=== PATIENT | male | born 1960 | race Caucasian/White ===

== ENCOUNTER 2022-12-26 12:12 | Emergency (ER) | payer OTHER ==
[~2022-12-26] VITALS: Ht 172.7 cm; Wt 84.4 kg
--- NOTE | 2022-12-26 12:25 | NUR ---
PATIENT CAME WITH COMPLAINTS OF LEFT FOOT PAIN,ITCHNESS AND REDNESS.ALERT AND ORIENTED.PATIENT CONNECTED TO CUSTOMS APPRAISER AND PULSE OXYMETER.BREATHING ON ROOM AIR WITH OUT ANY DISTRESS.ALL SAFTEY PRECAUTIONS AT BED SIDE.AWAITING MD FOR EVAL.
--- NOTE | 2022-12-26 12:26 | NUR ---
DR WALLACE AT BED SIDE
[2022-12-26] MEDS ORDERED: CLINDAMYCIN HCL 150 MG CAPSULE ONE (12:30)
[2022-12-26] MEDS: CLINDAMYCIN HCL 150 MG CAPSULE PO ONE (12:34)
[2022-12-26] MEDS ORDERED: CLIN300C12 PO (12:34)
[2022-12-26] MEDS ORDERED: diphenhydrAMINE HCL ELIX 25 MG/10 ML UDC ONE (12:43)
[2022-12-26] MEDS: DIPHENHYDRAMINE HCL 12.5 MG/5 ML UDC PO ONE (12:46)
--- NOTE | 2022-12-26 13:06 | NUR ---
lives at [facility] [address] [place], for transport...
--- NOTE | 2022-12-26 13:18 | NUR ---
CALLED [facility] FOR TRANSPORT, ETA 45 MINS.
[2022-12-26 14:19] VITALS: BP 134/78; TEMP 98; O2SAT 100
== END 2022-12-26 14:19 | disposition home health service (06) ==
LOC: ER 12:29
DX: L03.116 Cellulitis of left lower limb (principal)
CPT/HCPCS: 99283; Q0163 ×2

== ENCOUNTER 2023-01-20 16:42 | Emergency (ER) | payer OTHER ==
[~2023-01-20] VITALS: Ht 172.7 cm; Wt 83.5 kg
[~2023-01-20 16:42] MED LIST: CLIN300C12 PO
[2023-01-20] MEDS ORDERED: EFIN4SOL TP (17:33)
[2023-01-20 21:17] VITALS: BP 140/70; TEMP 98.5; O2SAT 97
== END 2023-01-20 19:50 ==
LOC: ER 16:56
DX: B35.1 Tinea unguium (principal)

== ENCOUNTER 2024-09-09 19:40 | Inpatient (IN) | payer MEDICAID, OTHER ==
[~2024-09-09] VITALS: Ht 172.7 cm; Wt 89.8 kg
[~2024-09-09 19:40] MED LIST changes: +EFIN4SOL TP
[2024-09-09 20:11] LABS: BASOPHILS % (AUTO) 0.1 % (0.0-2.0); EOSINOPHILS # (AUTO) 0.1 K/uL (0.0-0.7); EOSINOPHILS % (AUTO) 0.6 % (0.0-6.0); HEMATOCRIT 45 % (39-51); HEMOGLOBIN 15.3 g/dL (13.5-17.5); LYMPHOCYTES # (AUTO) 0.3 K/uL (0.8-4.8); LYMPHOCYTES % (AUTO) 2.1 % (20.0-44.0); MEAN CORPUSCULAR HEMOGLOBIN 30 PG (26.0-33.0); MEAN CORPUSCULAR HGB CONC 34 g/dl (31.0-36.0); MEAN CORPUSCULAR VOLUME 88 fL (80-96); MONOCYTES # (AUTO) 0.9 K/uL (0.1-1.30); MONOCYTES % (AUTO) 6.4 % (2.0-12.0); NEUTROPHILS # (AUTO) 12.4 K/uL (1.8-8.9); NEUTROPHILS % (AUTO) 90.8 % (43.0-81.0); PLATELET COUNT (AUTO) 163 K/uL (150-450); RED BLOOD CELL COUNT(AUTO) 5.08 MIL/uL (4.5-6.0); RED CELL DISTRIBUTION WIDTH 14.4 % (11.5-15.0); WHITE BLOOD COUNT (AUTO) 13.7 K/uL (4.3-11.0)
[2024-09-09 20:27] LABS: ALBUMIN 3.8 g/dL (3.4-5.0); BILIRUBIN,DIRECT 0.2 mg/dL (0.0-0.2); BILIRUBIN,TOTAL 0.7 mg/dL (0.2-1.0); CALCIUM, SERUM 8.9 mg/dL (8.5-10.1); CREATININE 1.6 mg/dL (0.6-1.3); POTASSIUM 4.5 mmol/L (3.5-5.1); TOTAL PROTEIN, SERUM 7.3 g/dL (6.4-8.2)
[2024-09-09] MEDS ORDERED: ONDANSETRON HCL/PF 4 MG/2 ML VIAL ONE (20:32)
[2024-09-09] MEDS: ONDANSETRON HCL/PF 4 MG/2 ML VIAL IVP ONE (20:40)
[2024-09-09] MEDS: IV NS 0.9% 1,000 ML BAG IV ONE (20:40)
[2024-09-09] MEDS ORDERED: IOHEXOL-300 100 ML VIAL IV ONE (21:46)
[2024-09-09] MEDS ORDERED: CT SWABBABLE VALVE TRANS SET 1 EA INFUS.SET MC ONE (21:47)
[2024-09-09] MEDS ORDERED: IV NS 0.9% 250 ML IV ONE (21:47)
[2024-09-09 21:49] LABS: APPEARANCE,URINE CLEAR (CLEAR); BILIRUBIN,URINE NEGATIVE (NEGATIVE); BLOOD, URINE NEGATIVE Ery/uL (NEGATIVE); COLOR,URINE YELLOW (YELLOW); KETONES,URINE TRACE mg/dL (NEGATIVE); LEUKOCYTE ESTERASE ,URINE NEGATIVE (NEGATIVE); NITRITE, URINE NEGATIVE (NEGATIVE); PROTEIN,URINE NEGATIVE (NEGATIVE); UGLUCOSE NEGATIVE (NEGATIVE); UROBILINOGEN,URINE 0.2 EU/dL (0.2)
[2024-09-09 21:54] LABS: RBC,URINE 0-2 /HPF (0-2); WBC,URINE 0-2 /HPF (0-3)
[2024-09-09 21:55] LABS: ADD URINE CULTURE NO; BACTERIA,URINE None seen /HPF (None Seen); SQUAMOUS EPITHELIAL CELL,UR None Seen /HPF (None Seen)
[2024-09-09] MEDS ORDERED: ACETAMINOPHEN 650 MG/SUPP.RECT RC PRN (22:00)
[2024-09-09] MEDS ORDERED: ONDANSETRON HCL/PF 4 MG/2 ML VIAL IVP PRN (22:00)
[2024-09-09] MEDS ORDERED: Z GUARD REMEDY 4 OZ OINT TP PRN (22:00)
[2024-09-09] MEDS ORDERED: MORPHINE SULFATE INJ 2 MG/ML DISP.SYRIN IV PRN (22:00)
[2024-09-09 23:28] VITALS: BP 151/86; TEMP 98.4; O2SAT 94
[2024-09-10] MEDS: IV NS 0.9% 1,000 ML IV PRN (00:26)
[2024-09-10 07:02] LABS: CALCIUM, SERUM 8.3 mg/dL (8.5-10.1); CREATININE 1.4 mg/dL (0.6-1.3); MAGNESIUM 2.1 mg/dL (1.8-2.4); PHOSPHORUS 3.6 mg/dL (2.5-4.9)
[2024-09-10 07:05] LABS: BASOPHILS % (AUTO) 0.1 % (0.0-2.0); EOSINOPHILS % (AUTO) 0.1 % (0.0-6.0); HEMATOCRIT 41 % (39-51); HEMOGLOBIN 13.7 g/dL (13.5-17.5); LYMPHOCYTES # (AUTO) 0.4 K/uL (0.8-4.8); LYMPHOCYTES % (AUTO) 3.8 % (20.0-44.0); MEAN CORPUSCULAR HEMOGLOBIN 29 PG (26.0-33.0); MEAN CORPUSCULAR HGB CONC 34 g/dl (31.0-36.0); MEAN CORPUSCULAR VOLUME 87 fL (80-96); MONOCYTES # (AUTO) 0.6 K/uL (0.1-1.30); MONOCYTES % (AUTO) 5.6 % (2.0-12.0); NEUTROPHILS # (AUTO) 9.3 K/uL (1.8-8.9); NEUTROPHILS % (AUTO) 90.4 % (43.0-81.0); PLATELET COUNT (AUTO) 141 K/uL (150-450); RED BLOOD CELL COUNT(AUTO) 4.71 MIL/uL (4.5-6.0); RED CELL DISTRIBUTION WIDTH 14.3 % (11.5-15.0); WHITE BLOOD COUNT (AUTO) 10.3 K/uL (4.3-11.0)
[2024-09-10 08:00] VITALS: BP 143/89; TEMP 98.6; O2SAT 98
[2024-09-10] MEDS: PANTOPRAZOLE 40 MG VIAL IV SCH (09:03)
[2024-09-10] MEDS: ENOXAPARIN SODIUM 40 MG/0.4 ML DISP.SYRIN SQ SCH (09:04)
[2024-09-10] MEDS: CEFEPIME 2 GM in IV D5W 100 ML IV SCH (10:58)
[2024-09-10 16:00] VITALS: BP 113/82; TEMP 97.5; O2SAT 95
[2024-09-10 20:00] VITALS: BP 151/90; TEMP 98.8; O2SAT 97
[2024-09-11 01:50] LABS: CREATININE, URINE 51.7 MG/DL (30.0-125.0); URINE TOTAL PROTEIN 11.4 mg/dL (0-11.9)
[2024-09-11 07:23] LABS: BASOPHILS % (AUTO) 0.1 % (0.0-2.0); EOSINOPHILS # (AUTO) 0.1 K/uL (0.0-0.7); EOSINOPHILS % (AUTO) 1.8 % (0.0-6.0); HEMATOCRIT 43 % (39-51); HEMOGLOBIN 14.3 g/dL (13.5-17.5); LYMPHOCYTES # (AUTO) 0.9 K/uL (0.8-4.8); LYMPHOCYTES % (AUTO) 12.3 % (20.0-44.0); MEAN CORPUSCULAR HEMOGLOBIN 29 PG (26.0-33.0); MEAN CORPUSCULAR HGB CONC 34 g/dl (31.0-36.0); MEAN CORPUSCULAR VOLUME 87 fL (80-96); MONOCYTES # (AUTO) 0.9 K/uL (0.1-1.30); MONOCYTES % (AUTO) 12.4 % (2.0-12.0); NEUTROPHILS # (AUTO) 5.2 K/uL (1.8-8.9); NEUTROPHILS % (AUTO) 73.4 % (43.0-81.0); PLATELET COUNT (AUTO) 126 K/uL (150-450); RED CELL DISTRIBUTION WIDTH 14.2 % (11.5-15.0); WHITE BLOOD COUNT (AUTO) 7.1 K/uL (4.3-11.0)
[2024-09-11 07:53] LABS: ALBUMIN 2.9 g/dL (3.4-5.0); BILIRUBIN,TOTAL 0.5 mg/dL (0.2-1.0); CALCIUM, SERUM 8.5 mg/dL (8.5-10.1); CREATININE 1.2 mg/dL (0.6-1.3); PHOSPHORUS 2.3 mg/dL (2.5-4.9); POTASSIUM 3.8 mmol/L (3.5-5.1); TOTAL PROTEIN, SERUM 6.2 g/dL (6.4-8.2)
[2024-09-11 08:00] VITALS: BP 153/95; TEMP 98.6; O2SAT 97
[2024-09-11] MEDS ORDERED: AMOX-430 PO ×2 (11:12)
[2024-09-11 16:00] VITALS: BP 153/96; TEMP 98.1; O2SAT 97
[2024-09-11] MEDS: Sodium Phosphate 15 MMOL in IV NS 0.9% 245 ML IV SCH (16:25)
[2024-09-13 17:10] LABS: PTH, INTACT 38 pg/mL (15-65)
== END 2024-09-11 18:50 | disposition home health service (06) | DRG 248 ==
LOC: ER 19:42 → MED 22:49
PROVIDERS: ADMIT Nurse Practitioner Family; ATTEND Internal Medicine
DX: A04.9 Bacterial intestinal infection, unspecified (principal); N17.9 Acute kidney failure, unspecified; M48.54XA Collapsed vertebra, not elsewhere classified, thoracic region, initial encounter for fracture; E78.5 Hyperlipidemia, unspecified; F41.9 Anxiety disorder, unspecified; I69.398 Other sequelae of cerebral infarction; R53.1 Weakness; Z79.899 Other long term (current) drug therapy; R73.9 Hyperglycemia, unspecified; M89.8X9 Other specified disorders of bone, unspecified site; E86.9 Volume depletion, unspecified; N43.3 Hydrocele, unspecified
CPT/HCPCS: 36415; 76705-TC; 76770-TC; 80048-TC; 80053-TC; 80076-TC; 81001; 82550-TC; 82570-TC; 83690-TC; 83735-TC; 83970; 84100-TC; 84155; 84165; 84300-TC; 85025-TC; 97110-TC; 97116-TC; 97530-TC; A4223; A9563; G0378; J0692; J1650; J2405; J2470; J7030; J7050; J7060; Q9967

== ENCOUNTER 2024-10-22 10:34 | Emergency (ER) | payer MEDICAID, OTHER ==
[~2024-10-22] VITALS: Ht 172.7 cm; Wt 75.3 kg
[~2024-10-22 10:34] MED LIST changes: +AMOX-430 PO
[2024-10-22 13:03] VITALS: BP 138/86; TEMP 98; O2SAT 98
== END 2024-10-22 13:04 ==
LOC: ER 10:35
DX: S00.83XA Contusion of other part of head, initial encounter (principal); Z86.73 Personal history of transient ischemic attack (TIA), and cerebral infarction without residual deficits; Z79.899 Other long term (current) drug therapy; W18.39XA Other fall on same level, initial encounter; Y93.89 Activity, other specified; Y92.89 Other specified places as the place of occurrence of the external cause; Y99.8 Other external cause status
CPT/HCPCS: 70450-TC